=== PATIENT | female | born 1995 | race Two or more races ===

== ENCOUNTER 2017-10-08 16:14 | Emergency (ER) | payer OTHER ==
[~2017-10-08] VITALS: Ht 157.5 cm; Wt 57.0 kg
[2017-10-08 16:20] VITALS: Ht 157.5 cm; Wt 57.0 kg
[2017-10-08] MEDS ORDERED: IBUPROFEN 200 MG TAB PO ONE (18:00)
--- NOTE | 2017-10-08 18:29 | RADRPT ---
PROCEDURE: XR nasal bones. CLINICAL INDICATION: Injury to nose with swelling and pain. TECHNIQUE: Three views were performed. COMPARISON: No prior studies are available for comparison. FINDINGS: Possible nondisplaced fracture of the proximal right nasal bone. Otherwise, no acute fracture or dis location is seen. The bone mineralization is normal. The soft tissues are unremarkable. IMPRESSION: 1. Possible nondisplaced fracture of the proximal right nasal bone. 2. Otherwise, no acute fracture or dislocation noted. RPTAT: [facility] Physician Vandana Date Time Electronically viewed and signed by Physician Vandana on 10/08/2017 18:28 RS/
[2017-10-08] MEDS ORDERED: IBUP400T22 PO (18:58)
--- NOTE | 2017-10-08 21:05 | ERD ---
ER Documentation Chief Complaint Chief Complaint Complains of pain to the nose x 3 days HPI This patient is a 22-year-old female presenting to the emergency department with complaints of nasal pain after injury earlier today. Approximately 2 hours ago, the patient was in [place] bounce [place] and accidentally slammed her knee into the bridge of her nose causing mild bleeding and pain. Pain has improved now. Symptoms are intermittent. She has taken no medication for relief of symptoms. She denies other injuries or symptoms at this time. ROS All systems reviewed and are negative except as per history of present illness. Medications Home Meds Active Scripts Ibuprofen* (Motrin*) 400 Mg Tab, 400 MG PO Q6, #30 TAB Prov:GAYLE LASSITER PA-C 10/08/17 Allergies Allergies: Coded Allergies: No Known Allergy (Unverified , 10/08/17) PMhx/Soc Hx Alcohol Use: No Hx Substance Use: No Hx Tobacco Use: No Smoking Status: Never smoker Physical Exam Vitals Vital Signs Date Time Temp Pulse Resp B/P Pulse Ox O2 Delivery O2 Flow Rate FiO2 10/08/17 16:20 97.6 110 20 120/78 97 Physical Exam Const: Nontoxic, well-appearing female in no acute distress. Head: Atraumatic Eyes: Normal Conjunctiva ENT: Normal external ears and mouth. There is tenderness palpation over the bridge of the nose with mild edema and ecchymosis noted. No signs of septal hematoma or septal deviation. No crepitus with range of motion. Ext: No cyanosis, or edema Neur: Awake and alert Psych: Normal Mood and Affect Results 24 hrs Current Medications Medications (Trade) Dose Ordered Sig/Elsi Route PRN Reason Start Time Stop Time Status Last Admin Dose Admin Ibuprofen (Motrin) 400 mg ONCE ONCE PO 10/08/17 18:00 10/08/17 18:01 DC 10/08/17 18:00 Procedures/MDM Patient is a 22-year-old female presented to the emergency department with complaints of nasal injury. Physical examination does show some mild ecchymosis and edema to the bridge of the nose but no crepitus on range of motion. X-ray shows a possible nondisplaced fracture of the proximal right nasal bone. Low suspicion for septal hematoma the patient, Concussion, or other emergent conditions. Patient is stable and appropriate for discharge and outpatient management with a prescription for ibuprofen. She is to have close follow-up with her primary care physician and an ENT specialist. She is to return immediately here for any new or worsening symptoms. PROCEDURE: XR nasal bones. CLINICAL INDICATION: Injury to nose with swelling and pain. TECHNIQUE: Three views were performed. COMPARISON: No prior studies are available for comparison. FINDINGS: Possible nondisplaced fracture of the proximal right nasal bone. Otherwise, no acute fracture or dislocation is seen. The bone mineralization is normal. The soft tissues are unremarkable. IMPRESSION: 1. Possible nondisplaced fracture of the proximal right nasal bone. 2. Otherwise, no acute fracture or dislocation noted. RPTAT: [facility] Physician Vandana Date Time Electronically viewed and signed by Physician Vandana on 10/08/2017 18:28 Departure Diagnosis: Primary Impression: Nasal injury Encounter type: initial encounter Qualified Code: S09.92XA - Injury of nose , initial encounter Additional Impression: Pain Condition: Fair Patient Instructions: Fracture, Nose (With X-Ray) Additional Instructions: Call your primary care doctor TOMORROW for an appointment during the next 1-2 days.See the doctor sooner or return here if your condition worsens before your appointment time. GAYLE LASSITER PA-C Oct 08, 2017 21:05
== END 2017-10-08 19:15 | disposition home or self-care (01) ==
LOC: FTE 16:14
DX: S09.92XA Unspecified injury of nose, initial encounter (principal); W22.8XXA Striking against or struck by other objects, initial encounter; Y92.9 Unspecified place or not applicable
CPT/HCPCS: 70160